=== PATIENT | female | born 1945 | race Hispanic/Latino ===

== ENCOUNTER 2023-11-09 09:09 | Outpatient (CLI) | payer MEDICARE, OTHER ==
[2023-11-09] MEDS ORDERED: E-Z-HD 98% W/W 340GM BOT (x-ray ONLY) ONE (10:36)
== END 2023-11-09 09:10 | disposition home or self-care (01) ==
LOC: RAD 09:09
PROVIDERS: ATTEND Otolaryngology
DX: R13.11 Dysphagia, oral phase (principal); R63.39 Other feeding difficulties
CPT/HCPCS: 74230